=== PATIENT | female | born 1990 | race Caucasian/White ===

== ENCOUNTER 2017-08-07 13:54 | Emergency (ER) | payer SELFPAY ==
[2017-08-07 14:05] VITALS: BP 121/76; PULSE 99; TEMP 99.4; BMI 40.2
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
== END 2017-08-07 16:26 | disposition home or self-care (01) ==
LOC: JERFT 13:54
DX: S80.02XA Contusion of left knee, initial encounter (principal); V43.62XA Car passenger injured in collision with other type car in traffic accident, initial encounter; Y92.488 Other paved roadways as the place of occurrence of the external cause; Y93.89 Activity, other specified; Y99.8 Other external cause status
CPT/HCPCS: 73560-TC-LT-FY; 84703; 99281-25

== ENCOUNTER 2018-11-29 08:51 | Emergency (ER) | payer SELFPAY ==
[2018-11-29 09:01] VITALS: BP 116/68; PULSE 83; TEMP 98; BMI 39.3
--- NOTE | 2018-11-29 10:16 | PDOC ---
History of Present Illness - General Chief Complaint: Injury Stated Complaint: INJURY Time Seen by Provider: 11/29/18 09:10 - History of Present Illness Initial Comments: 11/29/18 10:16 CHIEF COMPLAINT: fall HISTORY OF PRESENT ILLNESS: 28 yo F presents to fast track with pain to left knee and ankle and neck s/p fall. Patient states she slipped on oil in her building and fell on the steps, twisting her left ankle and knee. She reports discomfort to her neck, worsened by movement. Patient is ambulatory in ER but c/ o of pain with weight bearing to L ankle. Denies any trauma to head, denies LOC. No recent travel or sick contacts. PAST MEDICAL HISTORY: Denies past medical history FAMILY HISTORY: Denies SOCIAL HISTORY: Denies tobacco, alcohol, illicit drug use. SURGICAL HISTORY: Denies ALLERGIES: No known drug allergies REVIEW OF SYSTEMS General/Constitutional: Denies fever or chills. Denies weakness, weight change. HEENT: Denies change in vision. Denies ear pain or discharge. Denies sore throat. Cardiovascular: Denies chest pain or shortness of breath. Respiratory: Denies cough, wheezing, or hemoptysis. Gastrointestinal: Denies nausea, vomiting, diarrhea or constipation. Denies rectal bleeding. Genitourinary: Denies dysuria, frequency, or change in urination. Musculoskeletal: L knee and ankle pain. Skin and breasts: Denies rash or easy bruising. Neurologic: Denies headache, vertigo, loss of consciousness, or loss of sensation. Psychiatric: Denies depression or anxiety. PHYSICAL EXAM General Appearance: Well-appearing, appropriately dressed. No apparent distress , no intoxication. HEENT: EOMI, PERRLA, normal ENT inspection, normal voice, TMs normal, pharynx normal. No conjunctival pallor. No photophobia, scleral icterus. Neck: Supple. Trachea midline. No tenderness, rigidity, carotid bruit, stridor , lymphadenopathy, or thyromegaly. Respiratory/Chest: Lungs CTAB. No shortness of breath, chest tenderness, respiratory distress, accessory muscle use. No crackles, rales, rhonchi, stridor , wheezing, dullness Cardiovascular: RRR. S1, S2. No JVD, murmur, bradycardia, tachycardia. Vascular Pulses: Dorsalis-Pedis (R): 2+, Dorsalis-Pedis (L): 2+ Gastrointestinal/Abdominal: Normal bowel sounds. Abdomen soft, non-distended. No tenderness or rebound tenderness. No organomegaly, pulsatile mass, guarding , hernia, hepatomegaly, splenomegaly. Lymphatic: No adenopathy, tenderness. Musculoskeletal/Extremities: Tenderness and mild swelling to L lateral malleolus. Tenderness to b/l trapezius. Normal inspection. FROM of all extremities, normal capillary refill. Pelvis Stable. No CVA tenderness. No tenderness to extremities, pedal edema, swelling, erythema or deformity. Integumentary: Appropriate color, dry, warm. No cyanosis, erythema, jaundice or rash Neurologic: spring winder II-XII intact. Fully oriented, alert. Appropriate mood/affect. Motor strength 5/5. No appreciable EOM palsy, facial droop or sensory deficit. 11/29/18 13:01 Past History - Past Medical History Allergies/Adverse Reactions: Allergies Allergy/AdvReac Type Severity Reaction Status Date / Time No Known Allergies Allergy Verified 11/29/18 08:56 Home Medications: Ambulatory Orders Cyclobenzaprine HCl [Flexeril -] 10 mg PO HS #10 tablet 11/29/18 Diclofenac Sodium 75 mg PO BID #20 tablet. 11/29/18 Anemia: Yes COPD: No - Immunization History Immunization Up to Date: Yes - Suicide/Smoking/Psychosocial Hx Smoking Status: No Smoking History: Never smoked Number of Cigarettes Smoked Daily: 0 Hx Alcohol Use: No Drug/Substance Use Hx: No *Physical Exam - Vital Signs Last Vital Signs Temp Pulse Resp BP Pulse Ox 98.0 F 83 18 116/68 99 11/29/18 08:59 11/29/18 08:59 11/29/18 08:59 11/29/18 08:59 11/29/18 08:59 ED Treatment Course - ADDITIONAL ORDERS Additional order review: Laboratory Results 11/29/18 09:20 Urine HCG, Qual Negative - RADIOLOGY Radiology Studies Ordered: Category Date Time Status CERVICAL SPINE CT W/O CONTR [CT] Stat CT Scan 11/29/18 09:11 Taken ANKLE & FOOT-LEFT* [RAD] Stat Radiology 11/29/18 09:11 Taken KNEE 3 POS-LEFT [RAD] Stat Radiology 11/29/18 09:11 Taken Medical Decision Making - Medical Decision Making 11/29/18 13:01 28 yo F presents to fast track with pain to left knee and ankle and neck s/p fall. -knee and ankle x-ray -cervical spine CT x-rays negative for fracture/dislocation, Cspine CT negative. NSAIDS, muscle relaxants, RICE Advised patient to take medication as prescribed and follow up with ortho persists past 7-10 days. Advised patient of signs and symptoms for return to ED. Patient verbalized understanding and agrees to plan. *DC/Admit/Observation/Transfer Diagnosis at time of Disposition: Fall Qualifiers: Encounter type: initial encounter Qualified Code(s): W19.XXXA - Unspecified fall, initial encounter Ankle sprain Qualifiers: Encounter type: initial encounter Involved ligament of ankle: other ligament Laterality: left Qualified Code(s): S93.492A - Sprain of other ligament of left ankle, initial encounter Cervical muscle strain Qualifiers: Encounter type: initial encounter Qualified Code(s): S16.1XXA - Strain of muscle, fascia and tendon at neck level, initial encounter - Discharge Dispostion Disposition: HOME Condition at time of disposition: Stable Decision to Admit order: No - Prescriptions Prescriptions: Cyclobenzaprine HCl [Flexeril -] 10 mg PO HS #10 tablet Diclofenac Sodium 75 mg PO BID #20 tablet.dr - Referrals Referrals: Jamaal Rodas DO [Staff Physician] - - Patient Instructions Printed Discharge Instructions: DI for Ankle Sprain, DI for Cervical Muscle Strain, How To Perform RICE (Rest, Ice, Compress, Elevate) - Post Discharge Activity Forms/Work/School Notes: Back to Work
[2018-11-29] MEDS ORDERED: KETOROLAC TROMETHAMINE 30 MG/1 ML VIAL IM ONE (10:39)
[2018-11-29] MEDS ORDERED: KETOROLAC TROMETHAMINE 30 MG/1 ML VIAL ONE (10:41)
== END 2018-11-29 12:40 | disposition home or self-care (01) ==
LOC: JERFT 08:51 → JER 08:51 → JERFT 12:40
PROC: 3E0233Z Introduction of Anti-inflammatory into Muscle, Percutaneous Approach (ICD-10-PCS; principal; 2018-11-29)
DX: S93.492A Sprain of other ligament of left ankle, initial encounter (principal); S16.1XXA Strain of muscle, fascia and tendon at neck level, initial encounter; W10.9XXA Fall (on) (from) unspecified stairs and steps, initial encounter; Y93.89 Activity, other specified; Y92.89 Other specified places as the place of occurrence of the external cause
CPT/HCPCS: 72125-TC; 73562-TC-LT-FY; 73610-TC-LT-FY; 73630-TC-LT; 84703; 99282-25